=== PATIENT | female | born 1960 | race Caucasian/White ===

== ENCOUNTER 2024-12-10 17:10 | Inpatient (IN) | payer MEDICAID ==
[~2024-12-10] VITALS: Ht 157.5 cm; Wt 56.7 kg
[2024-12-10 17:36] VITALS: BP 103/78
[2024-12-10] MEDS ORDERED: Ziprasidone Mesylate 20 MG VIAL IM ONE (18:05)
[2024-12-10 18:24] LABS: BASO # 0.1 10*3/uL (0.0-0.1); BASO % 0.9 % (0.0-1.0); EOS # 0.2 10*3/uL (0.0-0.4); EOS % 1.8 % (1.0-4.0); HEMATOCRIT 35.1 % (37.0-47.0); MEAN CELL VOLUME 86.7 fl (81.0-99.0); MEAN CORPUSCULAR HGB 26.2 pg (27.0-31.0); MEAN CORPUSCULAR HGB CONC 30.2 g/dl (33.0-37.0); MONO # 0.7 10*3/uL (0.1-1.0); NEUT # 8.4 10*3/uL (2.3-7.9); NEUT % 73.5 % (47.0-73.0); PLATELET COUNT AUTOMATED 381 10*3/uL (130-400); RED BLOOD COUNT 4.05 10*6/uL (4.10-5.10); RED CELL DISTRI WIDTH 12.7 % (0-14.5); WHITE BLOOD COUNT 11.4 10*3/uL (4.8-10.8)
[2024-12-10 18:42] LABS: BILIRUBIN Negative (Negative); BLOOD 3+ (Negative); CLARITY Turbid (Clear); COLOR Yellow (Yellow); GLUCOSE Negative (Negative); KETONE Trace (Negative); LEUKO ESTERASE 3+ (Negative); NITRITE Negative (Negative); UROBILINOGEN 0.2 E.U./dl (0.0-1.0)
[2024-12-10 18:45] LABS: ALKALINE PHOSPHATASE 130 U/L (46-116); BUN 41 mg/dl (9-23); CHLORIDE 97 mmol/L (98-107); ETHYL ALCOHOL < 3.0 mg/dl (<3); SGPT/ALT < 7 U/L (5-49); TOTAL PROTEIN 9.2 gm/dL (6.0-8.0)
[2024-12-10 18:49] LABS: BACTERIA 2+; RBC 41-50 rbc/hpf (0-2); WBC TNTC wbc/hpf (0-5)
[2024-12-10 18:55] LABS: URINE AMPHETAMINES Negative (1000ng/ml); URINE BARBITURATES Negative (200ng/ml); URINE BENZODIAZEPINES Negative (200ng/ml); URINE CANNABINOIDS (THC) Negative (50ng/ml); URINE COCAINE Negative (300ng/ml); URINE METHADONE Negative (300ng/ml); URINE OPIATES Negative (300ng/ml); URINE PHENCYCLIDINE Negative (25ng/ml)
[2024-12-10] MEDS ORDERED: Ceftriaxone Sodium 1 GM/10 ML SYR IV ONE (19:40)
[2024-12-10] MEDS ORDERED: SODIUM CHLORIDE 0.9% 1,000 ML IV ONE (19:55)
[2024-12-10 21:50] VITALS: BP 153/57
[2024-12-11 00:05] VITALS: BP 127/42
[2024-12-11] MEDS ORDERED: MORPHINE Sulfate 2 MG/ML SYR IV PRN (00:20)
[2024-12-11] MEDS ORDERED: Acetaminophen/Hydrocodone 5 MG/325 MG TABLET PO PRN (00:20)
[2024-12-11] MEDS ORDERED: DEXTROSE 10 % IN WATER 250 ML IV PRN (00:35)
[2024-12-11 06:03] VITALS: BP 122/104
[2024-12-11] MEDS ORDERED: DIAZEPAM 10 MG/2 ML SYR IV ONE (06:10)
[2024-12-11] MEDS ORDERED: CALCIUM ANTACI300 MG PO (06:27)
[2024-12-11] MEDS ORDERED: BISACODYL10 MG R (06:27)
[2024-12-11] MEDS ORDERED: COLACE100 MG PO (06:28)
[2024-12-11] MEDS ORDERED: EXELON1 EAC1 T (06:29)
[2024-12-11] MEDS ORDERED: GLUCAGON EMERGEN1 M1 IJ (06:31)
[2024-12-11] MEDS ORDERED: GLUCOSE GEL38 GM PO (06:34)
[2024-12-11] MEDS ORDERED: KLONOPIN1 M1 PO (06:35)
[2024-12-11] MEDS ORDERED: MELATONIN5 M1 PO (06:35)
[2024-12-11] MEDS ORDERED: NARCAN4 MG NAS (06:37)
[2024-12-11] MEDS ORDERED: PEPCID AC20 MG PO (06:38)
[2024-12-11] MEDS ORDERED: ONDANSETRON HYDR4 MG PO (06:38)
[2024-12-11] MEDS ORDERED: TRAMADOL HCL50 MG PO (06:39)
[2024-12-11] MEDS ORDERED: TYLENOL EXTRA500 MG PO (06:39)
[2024-12-11] MEDS ORDERED: VISTARIL25 MG PO (06:40)
[2024-12-11] MEDS ORDERED: INSULIN LISPRO 1 UNIT/0.01 ML SQ SCH (07:30)
[2024-12-11 08:50] LABS: BASO # 0.1 10*3/uL (0.0-0.1); BASO % 0.9 % (0.0-1.0); EOS # 0.2 10*3/uL (0.0-0.4); EOS % 2.7 % (1.0-4.0); HEMATOCRIT 30.5 % (37.0-47.0); MEAN CELL VOLUME 86.6 fl (81.0-99.0); MEAN CORPUSCULAR HGB 26.4 pg (27.0-31.0); MEAN CORPUSCULAR HGB CONC 30.5 g/dl (33.0-37.0); MEAN PLATELET VOLUME 11.2 fl (9.6-12.3); MONO # 0.7 10*3/uL (0.1-1.0); MONO % 7.6 % (3.0-9.0); NEUT # 5.9 10*3/uL (2.3-7.9); NEUT % 66.4 % (47.0-73.0); RED BLOOD COUNT 3.52 10*6/uL (4.10-5.10); WHITE BLOOD COUNT 8.8 10*3/uL (4.8-10.8)
[2024-12-11 08:52] LABS: PLATELET COUNT AUTOMATED 257 10*3/uL (130-400)
[2024-12-11 09:20] VITALS: BP 153/58
[2024-12-11 09:28] LABS: ALKALINE PHOSPHATASE 111 U/L (46-116); BUN 41 mg/dl (9-23); CHLORIDE 100 mmol/L (98-107); FREE T4 1.04 ng/dl (0.89-1.76); POTASSIUM 4.4 mmol/L (3.4-5.1); TOTAL PROTEIN 7.7 gm/dL (6.0-8.0)
[2024-12-11] MEDS ORDERED: HEPARIN SODIUM 5,000 UNIT/ML VIAL SC SCH (10:00)
[2024-12-11 10:02] LABS: SGPT/ALT < 7 U/L (5-49)
[2024-12-11] MEDS ORDERED: SODIUM CHLORIDE 0.9% 1,000 ML IV SCH (10:35)
[2024-12-11 12:00] VITALS: BP 133/65
[2024-12-11] MEDS ORDERED: LITHIUM CARBON150 MG PO (13:52)
[2024-12-11] MEDS ORDERED: Melatonin 5 MG TABLET PO PRN (14:10)
[2024-12-11] MEDS ORDERED: Rivastigmine Tartrate 9.5 MG/24 HR PATCH T SCH (14:10)
[2024-12-11 16:00] VITALS: BP 165/60
[2024-12-11] MEDS ORDERED: clonAZEPAM 0.5 MG TAB PO SCH (18:00)
[2024-12-11 20:00] VITALS: BP 131/89
[2024-12-11] MEDS ORDERED: Ceftriaxone Sodium 1 GM,IV 1 EA in SYRINGE INFUSION 10 ML IV SCH (20:00)
[2024-12-12] VITALS: BP 102/58
[2024-12-12] MEDS ORDERED: ACETAMINOPHEN 325 MG TAB PO PRN (03:00)
[2024-12-12 06:39] LABS: BASO # 0.1 10*3/uL (0.0-0.1); BASO % 0.9 % (0.0-1.0); EOS # 0.3 10*3/uL (0.0-0.4); EOS % 3.2 % (1.0-4.0); HEMATOCRIT 30.6 % (37.0-47.0); MEAN CELL VOLUME 87.2 fl (81.0-99.0); MEAN CORPUSCULAR HGB 26.2 pg (27.0-31.0); MEAN CORPUSCULAR HGB CONC 30.1 g/dl (33.0-37.0); MEAN PLATELET VOLUME 11.1 fl (9.6-12.3); MONO # 0.6 10*3/uL (0.1-1.0); NEUT # 4.9 10*3/uL (2.3-7.9); PLATELET COUNT AUTOMATED 301 10*3/uL (130-400); RED BLOOD COUNT 3.51 10*6/uL (4.10-5.10); RED CELL DISTRI WIDTH 13.1 % (0-14.5); WHITE BLOOD COUNT 7.7 10*3/uL (4.8-10.8)
[2024-12-12 07:14] LABS: POTASSIUM 3.6 mmol/L (3.4-5.1)
[2024-12-12 08:00] VITALS: BP 156/71
[2024-12-12] MEDS ORDERED: SODIUM CHLORIDE 0.9% 1,000 ML IV ONE (08:50)
[2024-12-12] MEDS ORDERED: Menthol/Zinc Oxide 4 GM THIN T SCH (10:00)
[2024-12-12] MEDS ORDERED: FAMOTIDINE 20 MG TAB PO SCH (10:00)
[2024-12-12 12:00] VITALS: BP 141/71
[2024-12-12] MEDS ORDERED: OMNICEF300 MG PO (14:44)
[2024-12-12 16:00] VITALS: BP 145/64
== END 2024-12-12 18:59 | DRG 463 ==
LOC: ED 17:10 → 4E 23:54 → EDHOLD 23:54 → 4E 12-11 08:41
PROVIDERS: Internal Medicine; Nurse Practitioner Family; Student in an Organized Health Care Education/Training Program; ADMIT Family Medicine; ATTEND Family Medicine
DX: N30.01 Acute cystitis with hematuria (principal); N17.0 Acute kidney failure with tubular necrosis; E44.0 Moderate protein-calorie malnutrition; T56.891A Toxic effect of other metals, accidental (unintentional), initial encounter; E87.1 Hypo-osmolality and hyponatremia; E87.8 Other disorders of electrolyte and fluid balance, not elsewhere classified; I10 Essential (primary) hypertension; Z66 Do not resuscitate; E11.65 Type 2 diabetes mellitus with hyperglycemia; F32.9 Major depressive disorder, single episode, unspecified; F17.210 Nicotine dependence, cigarettes, uncomplicated; Z20.822 Contact with and (suspected) exposure to COVID-19; F41.1 Generalized anxiety disorder; Z89.512 Acquired absence of left leg below knee; Y92.89 Other specified places as the place of occurrence of the external cause; Z79.899 Other long term (current) drug therapy; Z68.1 Body mass index [BMI] 19.9 or less, adult